=== PATIENT | male | born 1950 | race African-American/Black ===

== ENCOUNTER 2021-01-20 16:58 | Emergency (ER) | payer BC ==
[~2021-01-20] VITALS: Ht 180.3 cm; Wt 90.7 kg
--- NOTE | 2021-01-20 17:00 | NUR ---
Dr Jimenez at the bedside for MSE.
[2021-01-20] MEDS ORDERED: TDAP DIPH,PERTUSS,TET VAC/PF 0.5 ML DISP.SYRIN IM ONE ×2 (17:15→17:18)
[2021-01-20 17:41] VITALS: BP 144/84
[2021-01-20] MEDS ORDERED: DOXY100T2 PO (17:44)
--- NOTE | 2021-01-20 17:54 | NUR ---
Patient discharged to home in stable condition. Written and verbal after care instructions given. Patient verbalizes understanding of instructions. Stressed follow up or return to ER for worsening s/s.
== END 2021-01-20 17:54 | disposition home or self-care (01) ==
LOC: ER 17:02
DX: S91.342A Puncture wound with foreign body, left foot, initial encounter (principal); W25.XXXA Contact with sharp glass, initial encounter; Y92.039 Unspecified place in apartment as the place of occurrence of the external cause; Z88.0 Allergy status to penicillin; R03.0 Elevated blood-pressure reading, without diagnosis of hypertension
CPT/HCPCS: 73630; 90715; A4663

== ENCOUNTER 2021-06-17 16:51 | Emergency (ER) | payer BC ==
[~2021-06-17] VITALS: Ht 180.3 cm; Wt 104.3 kg
[~2021-06-17 16:51] MED LIST: DOXY100T2 PO
[2021-06-17 17:57] LABS: HEMATOCRIT 42.7 % (36.7-47.1); MEAN CORPUSCULAR HEMOGLOBIN 31.3 uug (23.8-33.4); MEAN CORPUSCULAR VOLUME 93.8 fL (73.0-96.2); PLATELET COUNT (AUTO) 238 K/uL (152-348)
[2021-06-17 18:03] LABS: CARBON DIOXIDE 28 mmol/L (21-32); CHLORIDE 105 mmol/L (98-107); CREATININE 1.3 mg/dL (0.6-1.3); GLUCOSE 97 mg/dL (74-106); POTASSIUM 3.9 mmol/L (3.5-5.1); UREA NITROGEN, BLOOD 19 mg/dL (7-18)
[2021-06-17 18:15] LABS: ALANINE AMINOTRANSFERASE 23 U/L (16-63); ALKALINE PHOSPHATASE 72 U/L (50-136); ASPARTATE AMINOTRANSFERASE 27 U/L (15-37); BILIRUBIN,DIRECT 0.1 mg/dL (0.0-0.2); BILIRUBIN,TOTAL 0.6 mg/dL (0.2-1.0); TOTAL PROTEIN, SERUM 7.5 g/dL (6.4-8.2)
--- NOTE | 2021-06-17 19:15 | NUR ---
Received report from LIZBETH Dailey.
--- NOTE | 2021-06-17 19:27 | NUR ---
Patient discharged to home in stable condition. A/O x4, no SOB or labored breathning. Afebrile Denies any palpitations at this time. Denies any pain/discoimfort. Written and verbal after care instructions given. Patient verbalizes understanding of instructions. Stressed follow up or return to ER for worsening s/s. Steady gait. Accompanied by significant other.
[2021-06-17 19:30] VITALS: BP 157/84
== END 2021-06-17 19:30 | disposition home or self-care (01) ==
LOC: ER 16:51
DX: R00.2 Palpitations (principal); R91.1 Solitary pulmonary nodule; R00.1 Bradycardia, unspecified; Z88.0 Allergy status to penicillin
CPT/HCPCS: 36415; 70030-TC; 71045; 84443; 85025; 85730; 93005; A4663